=== PATIENT | female | born 1960 | race Caucasian/White ===

== ENCOUNTER 2018-07-22 11:04 | Day surgery (SDC) | payer BC ==
[2018-07-22] MEDS ORDERED: LACTATED RINGERS 1,000 ML IV ONE (11:33)
[2018-07-22] MEDS ORDERED: LIDOCAINE 1% 20 ML VIAL (10MG/ML) FOR IV START INTRADERMA ONE (11:34)
[2018-07-22 11:45] VITALS: TEMP 98.6
[2018-07-22] MEDS ORDERED: PROPOFOL 10 MG/ML 20 ML VIAL IV ONE (12:42)
[2018-07-22] MEDS ORDERED: LIDOCAINE 1% INJ 10MG/ML (20 ML MDV) ONE (12:42)
--- NOTE | 2018-07-22 12:56 | P.PCN ---
Date of Procedure: 07/22/18 Procedure(s) Performed: BRIEF HISTORY: Patient is a 57-year-old pleasant white female, scheduled for an elective colonoscopy as a part of evaluation of prior history of colon polyps. She had a large colon polyp in 2010 requiring segmental colon resection. She is scheduled for a surveillance colonoscopy today. PROCEDURE PERFORMED: Colonoscopy. PREOPERATIVE DIAGNOSIS: History of colon polyps. IV sedation per Anesthesia. PROCEDURE: After informed consent was obtained, the patient, was brought into the endoscopy unit. IV sedation was administered by Anesthesia under continuous monitoring. Digital rectal examination was normal. Initially the Olympus CF-160 flexible video colonoscope was then inserted in the rectum, gradually advanced into the right colon. The ileal colic anastomosis was visualized and appeared normal. The ascending colon, transverse colon, descending colon, sigmoid colon, and rectum appeared normal. Retroflexion was performed in the rectum and no lesions were seen. Scattered sigmoid diverticulosis seen. The patient tolerated the procedure well. IMPRESSION: Normal-appearing colon from rectum to cecum with no evidence of colorectal neoplasia. Scattered sigmoid diverticulosis. RECOMMENDATIONS: Findings of this examination were discussed with the patient as well as a family. She was advised to have a repeat surveillance colonoscopy in 5 years from now because of the prior history of colon polyps..
[2018-07-22 13:01] VITALS: RESP 16
[2018-07-22 13:34] VITALS: BP 113/60; PULSE 67
== END 2018-07-22 13:36 | disposition home or self-care (01) ==
LOC: ORWHC2ENDO 11:04
PROVIDERS: ATTEND Internal Medicine Gastroenterology
DX: Z86.010 Personal history of colon polyps (principal); K57.30 Diverticulosis of large intestine without perforation or abscess without bleeding; E78.5 Hyperlipidemia, unspecified; Z79.899 Other long term (current) drug therapy; Z90.49 Acquired absence of other specified parts of digestive tract
CPT/HCPCS: 45378; J2001; J2704